=== PATIENT | male | born 1955 | race Caucasian/White ===

== ENCOUNTER 2016-10-30 18:28 | Emergency (ER) | payer OTHER ==
[2016-10-30 19:28] VITALS: BP 126/89; PULSE 89; RESP 20; TEMP 98.5; O2SAT 95
[2016-10-30] MEDS ORDERED: TRAMADOL HYDROCHLORIDE 50 MG TAB PO ONE (19:37)
[2016-10-30] MEDS ORDERED: TRAMADOL HYDROCHLORIDE 50 MG TAB ONE (19:38)
== END 2016-10-30 19:41 | disposition home or self-care (01) | DRG 395 ==
LOC: ED 18:28
DX: K40.90 Unilateral inguinal hernia, without obstruction or gangrene, not specified as recurrent (principal)
CPT/HCPCS: 99282

== ENCOUNTER 2016-11-10 07:23 | Day surgery (SDC) | payer OTHER ==
[~2016-11-10 07:23] MED LIST: FENTANYL CITRATE 50 MCG/ML SOL ONE; LIDOCAINE HCL 1% MPF SOL ONE; PROPOFOL 500 MG/50 ML EMU IV ONE
[2016-11-10] MEDS ORDERED: CEFAZOLIN SODIUM 1 GM PDS ONE (08:51)
[2016-11-10] MEDS: BUPIVACAINE/EPI 0.25% 50 ML SOL ONE (08:58)
[2016-11-10] MEDS ORDERED: PROPOFOL 500 MG/50 ML EMU IV ONE (09:01)
[2016-11-10 10:07] VITALS: RESP 20; TEMP 97.5
[2016-11-10 10:27] VITALS: BP 125/67; PULSE 79; O2SAT 96
== END 2016-11-10 10:45 | disposition home or self-care (01) | DRG 951 ==
LOC: SURG 07:23
PROVIDERS: ATTEND Surgery
DX: Z12.11 Encounter for screening for malignant neoplasm of colon (principal); K40.90 Unilateral inguinal hernia, without obstruction or gangrene, not specified as recurrent; K57.30 Diverticulosis of large intestine without perforation or abscess without bleeding
CPT/HCPCS: 82962; J0690; J3010; A6402; C1781; J2001; J2704